=== PATIENT | female | born 1950 | race Caucasian/White ===

== ENCOUNTER 2017-05-09 14:40 | Emergency (ER) | payer BC ==
--- NOTE | 2017-05-09 15:33 | RADIOLOGY REPORT (SQ) ---
EXAM DESCRIPTION: CT HEAD WITHOUT COMPLETED DATE/TIME: 05/09/2017 3:18 pm REASON FOR STUDY: visual changes, "head doesnt feel right" COMPARISON: None. TECHNIQUE: Axial images acquired through the brain without intravenous contrast. Images reviewed wi th bone, brain and subdural windows. Images stored on PACS. All CT scanners at this facility use dose modulation, iterative reconstruction, and/or weight based d osing when appropriate to reduce radiation dose to as low as reasonably achievable (ALARA). [facility]: Dose Right [facility]: CareDose [facility]: Dose Right [facility]: Teradose 4D [facility]: VirnetX RADIATION DOSE: mGy. LIMITATIONS: None. FINDINGS: VENTRICLES: Normal size and contour. CEREBRUM: No masses. No hemorrhage. No midline shift. No evidence for acute infarction. Normal gra y/white matter differentiation. No areas of low density in the white matter. CEREBELLUM: No masses. No hemorrhage. No alteration of density. No evidence for acute infarction. EXTRAAXIAL SPACES: No fluid collections. No masses. ORBITS AND GLOBE: No intra- or extraconal masses. Normal contour of globe without masses. CALVARIUM: No fracture. PARANASAL SINUSES: No fluid or mucosal thickening. SOFT TISSUES: No mass or hematoma. OTHER: No other significant finding. IMPRESSION: NORMAL BRAIN CT WITHOUT CONTRAST. EVIDENCE OF ACUTE STROKE: NO. COMMENT: Quality ID # [id number]: Final reports with documentation of one or more dose reduction techniques (e.g., Automated exposure control, adjustment of the mA and/or kV according to patient size, use of iterative reconstruction technique) TECHNICAL DOCUMENTATION: JOB ID: [id number] [employer]- All Rights Reserved
--- NOTE | 2017-05-09 15:50 | ER Document Report ---
ED Medical Screen (RME) - General Chief Complaint: Doesn't Feel Right Stated Complaint: HEAD PRESSURE Time Seen by Provider: 05/09/17 15:47 Mode of Arrival: Ambulatory Information source: Patient Notes: Patient presents complaining of not feeling well in her head since Sunday. Patient denies any headache pain but states she has a generalized pressure and does not feel right. Patient also reports blurred vision to her left eye that started yesterday which is a new symptom for her. Patient states Sunday she did have some shooting lights across her field of vision but that has resolved. Patient does have a history of hypertension and hypothyroidism. Patient denies any head injury or loss of consciousness. TRAVEL OUTSIDE OF THE [place] IN LAST 30 DAYS: No - Related Data Allergies/Adverse Reactions: Sulfa (Sulfonamide Antibiotics) Allergy (Verified 05/09/17 15:09) Physical Exam - Neurological Neuro grossly intact: Yes Cognition: Normal Sparkle Coma Scale Eye Opening: Spontaneous [place] Coma Scale Verbal: Oriented Sparkle Coma Scale Motor: Obeys Commands Sparkle Coma Scale Total: 15 Speech: Normal
[2017-05-09 16:12] LABS: ABSOLUTE BASOPHILS # (AUTO) 0.1 10^3/uL (0.0-0.2); ABSOLUTE EOSINOPHILS # (AUTO) 0.5 10^3/uL (0.0-0.6); ABSOLUTE LYMPHOCYTES (AUTO) 1.6 10^3/uL (0.5-4.7); ABSOLUTE MONOCYTES (AUTO) 0.6 10^3/uL (0.1-1.4); ABSOLUTE NEUT (AUTO) 2.7 10^3/uL (1.7-8.2); BASOPHILS % (AUTO) 2.1 % (0-2); HEMATOCRIT 39.7 % (36.0-47.0); HEMOGLOBIN 13.7 g/dL (12.0-15.5); HGB HCT DIFFERENCE 1.4; LYMPHOCYTES % (AUTO) 28.2 % (13-45); MEAN CORPUSCULAR HEMOGLOBIN 29.4 pg (27.0-33.4); MEAN CORPUSCULAR HGB CONC 34.6 g/dL (32.0-36.0); MEAN CORPUSCULAR VOLUME 85 fl (80-97); MONOCYTES % (AUTO) 11.5 % (3-13); RED BLOOD COUNT 4.67 10^6/uL (3.72-5.28); SEGMENTED NEUTROPHILS % (AUTO) 49.2 % (42-78); WHITE BLOOD COUNT 5.6 10^3/uL (4.0-10.5)
[2017-05-09 16:19] LABS: PROTHROMBIN TIME 12.5 SEC (11.4-15.4)
[2017-05-09 16:21] LABS: PARTIAL THROMBOPLASTIN TIME 26.4 SEC (23.5-35.8)
[2017-05-09 16:29] LABS: ALANINE AMINOTRANSFERASE 29 U/L (9-52); ALBUMIN 4.4 g/dL (3.5-5.0); ALKALINE PHOSPHATASE 87 U/L (38-126); ANION GAP 11 (5-19); ASPARTATE AMINO TRANSFERASE 28 U/L (14-36); BILIRUBIN,DIRECT 0.4 mg/dL (0.0-0.4); BILIRUBIN,TOTAL 0.7 mg/dL (0.2-1.3); BLOOD UREA NITROGEN 21 mg/dL (7-20); CALCIUM 10.1 mg/dL (8.4-10.2); CARBON DIOXIDE 31 mmol/L (22-30); CHLORIDE 98 mmol/L (98-107); CREATINE KINASE 92 U/L (30-135); CREATININE RESULT 0.74 mg/dL (0.52-1.25); GLUCOSE 98 mg/dL (75-110); SODIUM 140.2 mmol/L (137-145); TOTAL PROTEIN 7.8 g/dL (6.3-8.2)
[2017-05-09 16:42] LABS: TROPONIN I < 0.012 ng/mL
--- NOTE | 2017-05-09 18:19 | ER Document Report ---
ED General - General Chief Complaint: Doesn't Feel Right Stated Complaint: HEAD PRESSURE Time Seen by Provider: 05/09/17 15:47 Mode of Arrival: Ambulatory Information source: Patient Notes: This is a 67-year-old female with a history of hypertension, hypothyroidism and dyslipidemia who presents to the emergency room with left blurry vision, head congestion. Patient states she started seeing flashes of light in front of her eyes 5 days ago and her vision has not been the same since. TRAVEL OUTSIDE OF THE [place] IN LAST 30 DAYS: No - HPI Onset: Last week Onset/Duration: Sudden Quality of pain: No pain Severity: None Pain Level: Denies Associated symptoms: denies: Chills, Fever, Shortness of breath Exacerbated by: Denies Relieved by: Denies Similar symptoms previously: No Recently seen / treated by doctor: No - Related Data Allergies/Adverse Reactions: Sulfa (Sulfonamide Antibiotics) Allergy (Verified 05/09/17 15:09) Past Medical History - General Information source: Patient - Social History Smoking Status: Never Smoker Cigarette use (# per day): No Chew tobacco use (# tins/day): No Frequency of alcohol use: Rare Drug Abuse: None Lives with: Family Family History: None Patient has suicidal ideation: No Patient has homicidal ideation: No - Past Medical History Cardiac Medical History: Reports: Hx Hypertension Pulmonary Medical History: Reports: None EENT Medical History: Reports: None Neurological Medical History: Reports: None Endocrine Medical History: Reports: None Renal/ Medical History: Reports: None. Denies: Hx Peritoneal Dialysis Malignancy Medical History: Reports: None GI Medical History: Reports: None Skin Medical History: Reports None Psychiatric Medical History: Reports: None Past Surgical History: Reports: Hx Hysterectomy Review of Systems - Review of Systems Constitutional: denies: Chills, Fever EENT: No symptoms reported Cardiovascular: No symptoms reported Respiratory: No symptoms reported Gastrointestinal: See HPI Genitourinary: No symptoms reported Female Genitourinary: No symptoms reported Musculoskeletal: No symptoms reported Skin: No symptoms reported Hematologic/Lymphatic: No symptoms reported Neurological/Psychological: No symptoms reported Physical Exam - Vital signs Vitals: Temp Pulse Resp BP Pulse Ox 98.5 F 72 16 142/70 H 98 05/09/17 18:33 05/09/17 18:33 05/09/17 18:33 05/09/17 18:33 05/09/17 18:33 Notes: Physical exam: GENERAL: 67-year-old female, alert and oriented 3, no acute distress HEAD: Atraumatic, normocephalic. The patient denies any headache. The patient denies any eye pain. The patient does not have any tenderness over the temporal artery on either side. EYES: Visual acuity is 20/40 in both eyes with corrective glasses, pupils equal round and reactive to light, extraocular movements intact, sclera anicteric, conjunctiva are normal. The patient does not have any corneal haze. ENT: TMs normal, nares patent, oropharynx clear without exudates. Moist mucous membranes. NECK: Normal range of motion, supple without obvious mass LUNGS: Breath sounds clear to auscultation bilaterally and equal. No wheezes rales or rhonchi. HEART: Regular rate and rhythm without murmurs, rubs or gallops. ABDOMEN: Soft, normoactive bowel sounds. No tenderness to palpation. No guarding, no rebound. No masses appreciated. EXTREMITIES: Normal range of motion, no pitting or edema. No clubbing or cyanosis. NEUROLOGICAL: Cranial nerves II through XII grossly intact. Motor 5/5, sensory grossly intact, cerebellar, grossly intact normal speech, moving all extremities. PSYCH: Normal mood, normal affect. SKIN: Warm, Dry, normal turgor, no rashes or lesions noted. - HEENT Visual acuity- Right eye: 20/40 Visual acuity- Left eye: 20/40 Visual acuity- Both eyes: 20/40 Corrective lenses worn: Yes Course - Re-evaluation Re-evalutation: 05/09/17 18:16 I discussed case with Dr. Reyes was willing to see the patient first thing in the morning. Patient has no evidence of temporal arteritis and she has no pain or headache. There is no corneal haze and she has got good pupillary movement which goes against acute angle glaucoma. She does state that she has been seeing flashes of light for approximately 5 days so I would like her to be seen by an mortgage broker and Dr. Reyes is willing to see her tomorrow at 8 AM. I discussed this with her and she is willing to go. - Vital Signs Vital signs: Temp Pulse Resp BP Pulse Ox 98.5 F 72 16 142/70 H 98 05/09/17 18:33 05/09/17 18:33 05/09/17 18:33 05/09/17 18:33 05/09/17 18:33 - Laboratory Result Diagrams: 05/09/17 15:59 05/09/17 15:59 Laboratory results interpreted by me: 05/09/17 05/09/17 15:59 15:59 Eosinophils % 9.0 H Basophils % 2.1 H Carbon Dioxide 31 H BUN 21 H - Diagnostic Test Radiology reviewed: Image reviewed, Reports reviewed - DT of the head shows no acute process. - EKG Interpretation by Me Rate: Normal Rhythm: NSR - EKG shows normal sinus rhythm with a ventricular rate of 55, no acute ST-T wave changes Discharge - Discharge Clinical Impression: Blurry vision Condition: Stable Disposition: HOME, SELF-CARE Additional Instructions: As we discussed, the CT of the head look good: There is no evidence of acute strokes or mass lesions. Your labs look quite good as well. Recommendations: I would like you to see the mortgage broker first thing in the morning: Arrived at 8 AM. I left a number on the chart. Tell the medical office receptionist that the ER doctor had spoken to Dr. Reyes and he wanted you to be there at 8 AM to be fit in. Bring a copy of your labs and CT report to your primary care doctor as well: You should follow-up with her. Return to the emergency room for worsening vision changes, headache, dizziness or any concerns or getting worse. Referrals: MITCHELL REYES, [ACTIVE STAFF] - Follow up as needed (This is the number for the eye doctor: Arrive at 8 AM tomorrow. Tell the medical office receptionist that the ER doctor had spoken to Dr. Reyes and he wanted you to come at 8 AM to be fit in.)
[2017-05-09 18:38] VITALS: BP 142/70
--- NOTE | 2017-05-09 20:17 | EKG REPORT ---
SEVERITY:- NORMAL ECG - SINUS RHYTHM : Confirmed by: Ranjeet Fabian MD 09-May-2017 20:17:19
== END 2017-05-09 18:38 | disposition home or self-care (01) ==
LOC: ER 14:40
DX: H53.8 Other visual disturbances (principal); I10 Essential (primary) hypertension; Z88.2 Allergy status to sulfonamides
CPT/HCPCS: 36415; 70450; 80053; 82550; 82553; 84484; 85025; 85610; 85730; 93005; 93010; 99284

== ENCOUNTER → 2018-08-07 | Outpatient (CLI) | payer BC, MEDICARE ==
--- NOTE | 2018-08-07 09:33 | WOMENS IMAGING REPORT ---
EXAM DESCRIPTION: BILAT SCREENING MAMMO W/CAD COMPLETED DATE/TIME: 08/07/2018 8:51 am REASON FOR STUDY: ROUTINE BILATERAL SCREENING,Z12.31 Z12.31 ENCNTR SCREEN MAMMOGRAM FOR MALIGNANT N EOPLASM OF MANI COMPARISON: [id number] TECHNIQUE: Standard craniocaudal and mediolateral oblique views of each breast recorded using [employer] in [place] l acquisition. LIMITATIONS: None. FINDINGS: Findings present which are benign by mammographic criteria. No suspicious masses, calcifi cations or architectural distortion. Pertinent benign findings: Stable calcifications. Read with the assistance of CAD. .[facility] - R2 Cenova Version 1.3 .[facility] Imaging - R2 Cenova Version 2.1 .[facility] Imaging - R2 Cenova Version 2.4 .[facility] [place] - R2 Cenova Version 2.4 .[facility] - R2 Networker Version 9.2 Benign mammographic findings may include one or more of the following: Smooth masses, popcorn/rim/co arse calcifications, asymmetries, post-procedure changes, and lesions with long-standing stability. IMPRESSION: BENIGN MAMMOGRAPHIC FINDINGS. BIRADS 2 BREAST DENSITY: b. There are scattered areas of fibroglandular density. BIRAD: 2 BENIGN FINDING(S) RECOMMENDATION: ROUTINE SCREENING COMMENT: The patient has been notified of the results by letter per SA requirements. Additional no tification policies are in place for contacting patient with suspicious or incomplete findings. Quality ID #[id number]: The [employer] recommends an annual screening mammogram for women aged 40 years or over. This facility utilizes a reminder system to ensure that all patients receive reminder letters, and/or direct phone calls for appointments. This includes reminders for routine scr eening mammograms, diagnostic mammograms, or other Breast Imaging Interventions when appropriate. Th is patient will be placed in the appropriate reminder system. The [employer] (ACR) has developed recommendations for screening MRI of the breast s in certain patient populations, to be used in conjunction with mammography. Breast MRI surveillanc e may be appropriate for women with more than 20% lifetime risk of developing breast cancer as deter mined by genetic testing, significant family history of the disease, or history of mantle radiation f or Hodgkins Disease. ACR Practice Guidelines 2008. TECHNICAL DOCUMENTATION: FINDING NUMBER: (1) ASSESSMENT: (1) JOB ID: [id number] [employer]- All Rights Reserved Reading location - IP/workstation name: [email or web address]
== END ==
LOC: WI 08:25
PROVIDERS: ATTEND Family Medicine
DX: Z12.31 Encounter for screening mammogram for malignant neoplasm of breast (principal)
CPT/HCPCS: 77067